=== PATIENT | female | born 1995 | race Two or more races ===

== ENCOUNTER 2018-06-17 05:57 | Inpatient (IN) | payer MEDICAID ==
[2018-06-14 12:33] LABS: Basophils # (auto) 0 uL; Basophils % (auto) 0.3 % (0.0-2.0); Eosinophils # (auto) 0 uL; Eosinophils % (auto) 0.5 % (0.0-7.0); Hematocrit 43.1 % (36.0-46.0); Hemoglobin 14.5 g/dL (12.2-16.2); Lymphocytes # (auto) 2.8 uL; Lymphocytes % (auto) 31.3 % (10.0-50.0); Mean Corpuscular Hemoglobin 28.1 pg (28.0-32.0); Mean Corpuscular Hgb Conc. 33.6 g/dL (32.0-36.0); Mean Corpuscular Volume 83.7 fL (80.0-100.0); Monocytes # (auto) 0.5 uL; Monocytes % (auto) 6.1 % (0.0-12.0); Neutrophils # (auto) 5.6 uL; Neutrophils % (auto) 61.8 % (37.0-80.0); Nucleated Red Blood Cells % 0.1 %; Platelet Count (auto) 345 10^3/uL (140-450); Red Blood Cells 5.15 10^6/uL (4.0-5.20); Red Cell Distribution Width 13.6 % (11.8-14.3)
[2018-06-14 12:35] LABS: Urine Bacteria FEW /hpf (None Seen); Urine Blood Negative /uL (Negative); Urine Mucus FEW (None Seen); Urine Specific Gravity 1.027 (1.001-1.035); Urine WBC 4 /hpf (0 - 5)
[2018-06-14 12:45] LABS: INR 0.93 (0.9-1.15); Partial Thromboplastin Time 29.6 sec (23.78-33.04)
[2018-06-14 13:19] LABS: Calcium 8.7 mg/dL (8.5-10.1); Potassium 3.5 mmol/L (3.5-5.1)
[2018-06-14 13:22] LABS: Albumin 3.7 g/dL (3.4-5.0); BUN/Creatinine Ratio 18.8
[2018-06-14 13:25] LABS: Bilirubin, Total 0.3 mg/dL (0.2-1.0); Total Protein 7.8 g/dL (6.4-8.2)
[~2018-06-17] VITALS: Ht 172.7 cm; Wt 131.0 kg
[~2018-06-17 05:57] MED LIST: ATEN-60 PO; BUPRTAB3 PO; DIPH2.5T73 PO; DIVA500T53 PO; HYDR-531 PO; LAMO200T2 PO; METF-370 PO; MORP30TA PO; ZOLP-158 PO
[2018-06-17] MEDS ORDERED: HYDROmorphone HCL 2 MG/ML VL ONE ×2 (07:09→11:27)
[2018-06-17] MEDS ORDERED: fentaNYL CITRATE 100 MCG/2 ML VL ONE (07:09)
[2018-06-17] MEDS ORDERED: ROCURONIUM 10MG/ML 10ML VIAL IV ONE (07:09)
[2018-06-17] MEDS ORDERED: PROPOFOL 10 MG/ML 20 ML IV ONE (07:09)
[2018-06-17] MEDS ORDERED: SODIUM CHLORIDE LOCK 40 ML ONE (07:09)
[2018-06-17] MEDS ORDERED: KETOROLAC TROMETH 60MG/2ML VIAL IM ONE ×2 (07:09→09:27)
[2018-06-17] MEDS ORDERED: ONDANSETRON HCL 4 MG/2 ML VIAL ONE (07:09)
[2018-06-17] MEDS ORDERED: MIDAZOLAM HCL 1MG/1ML-2 ML VIAL ONE (07:09)
[2018-06-17] MEDS ORDERED: fentaNYL CITRATE 10 ML ONE (07:10)
[2018-06-17] MEDS ORDERED: CLINDAMYCIN 900MG IV 50 ML IV ONE (07:15)
[2018-06-17] MEDS ORDERED: GENTAMICIN SULFATE 80 MG in D5W 5% 100 ML IV ONE (07:15)
[2018-06-17] MEDS ORDERED: ACCU-CHEK COMFORT CURVE STRIP VI ONE (07:45)
[2018-06-17] MEDS ORDERED: MORPHINE SULF INJ 2 MG/ML SYRINGE 1ML IV PRN (07:45)
[2018-06-17] MEDS ORDERED: METOCLOPRAMIDE HCL 5MG/ml INJ 2ml VIAL IV ONE (07:45)
[2018-06-17] MEDS ORDERED: KETOROLAC TROMETH 30 MG/ML 1ML VIAL IV ONE (07:45)
[2018-06-17] MEDS ORDERED: GENTAMICIN SULF 80 MG/2 ML VIAL ONE (08:02)
[2018-06-17] MEDS ORDERED: NEOSTIGMINE 1 MG/ML INJ (10mg/10ML VIAL) ONE (09:27)
[2018-06-17] MEDS ORDERED: GLYCOPYRROLATE 0.2 MG/ML 1ML VIAL ONE (09:27)
[2018-06-17] MEDS: LACTATED RINGER'S 1,000 ML IV SCH ×3 (10:23→23:43)
[2018-06-17] MEDS ORDERED: ACETAMINOPHEN IV 100 ML IV ONE ×2 (10:30→10:38)
[2018-06-17] MEDS ORDERED: HYDROmorphone HCL 2 MG/ML VL IV ONE (11:30)
[2018-06-17] MEDS ORDERED: MEPERIDINE HCL (50 MG/ML) 1 ML VIAL IV ONE (11:50)
[2018-06-17] MEDS ORDERED: MEPERIDINE HCL (50 MG/ML) 1 ML VIAL ONE (11:55)
[2018-06-17 12:53] VITALS: BP 130/82
[2018-06-17 14:00] VITALS: BP 130/82
[2018-06-17] MEDS: MORPHINE SULF INJ 2 MG/ML SYRINGE 1ML IV PRN ×2 (15:31→20:33)
[2018-06-17] MEDS: CLINDAMYCIN 900MG IV 50 ML IV SCH ×2 (15:37→22:29)
[2018-06-17 16:53] VITALS: BP 132/75
[2018-06-17] MEDS: GENTAMICIN SULFATE 80 MG in D5W 5% 100 ML IV SCH (17:35)
[2018-06-17 22:00] VITALS: BP 130/66
[2018-06-18] MEDS: GENTAMICIN SULFATE 80 MG in D5W 5% 100 ML IV SCH ×2 (00:36→09:17)
[2018-06-18] MEDS: MORPHINE SULF INJ 2 MG/ML SYRINGE 1ML IV PRN ×3 (00:36→18:35)
[2018-06-18 05:00] VITALS: BP 139/77
[2018-06-18 05:40] LABS: Basophils # (auto) 0 uL; Basophils % (auto) 0.2 % (0.0-2.0); Eosinophils # (auto) 0 uL; Hematocrit 39.9 % (36.0-46.0); Hemoglobin 13.4 g/dL (12.2-16.2); Lymphocytes # (auto) 2.5 uL; Lymphocytes % (auto) 20.3 % (10.0-50.0); Mean Corpuscular Hemoglobin 28.4 pg (28.0-32.0); Mean Corpuscular Hgb Conc. 33.6 g/dL (32.0-36.0); Mean Corpuscular Volume 84.6 fL (80.0-100.0); Monocytes # (auto) 1.5 uL; Monocytes % (auto) 12.4 % (0.0-12.0); Neutrophils # (auto) 8.2 uL; Neutrophils % (auto) 67.1 % (37.0-80.0); Nucleated Red Blood Cells % 0.1 %; Platelet Count (auto) 335 10^3/uL (140-450); Red Blood Cells 4.71 10^6/uL (4.0-5.20); Red Cell Distribution Width 13.7 % (11.8-14.3); White Blood Cell 12.2 10^3/uL (4.4-10.8)
[2018-06-18 05:56] LABS: Albumin 3.3 g/dL (3.4-5.0); BUN/Creatinine Ratio 9.4; Calcium 8.3 mg/dL (8.5-10.1); Potassium 3.8 mmol/L (3.5-5.1)
[2018-06-18 05:58] LABS: Bilirubin, Total 0.4 mg/dL (0.2-1.0); Total Protein 7.3 g/dL (6.4-8.2)
[2018-06-18] MEDS: CLINDAMYCIN 900MG IV 50 ML IV SCH (06:23)
[2018-06-18] MEDS: LACTATED RINGER'S 1,000 ML IV SCH (06:49)
[2018-06-18 08:00] VITALS: BP 126/73
[2018-06-18] MEDS ORDERED: LACTATED RINGER'S 1,000 ML IV SCH (08:32)
[2018-06-18] MEDS ORDERED: SIMETHICONE 80 MG CHEWABLE TABLET PO PRN (08:45)
[2018-06-18 09:00] VITALS: BP 126/73
[2018-06-18] MEDS: DOCUSATE SOD 100 MG CAP PO SCH ×2 (09:17→22:00)
[2018-06-18] MEDS ORDERED: PATIENTS OWN MEDICATION (Lamotrigine (Lamictal) 1 TAB) PO SCH (10:00)
[2018-06-18] MEDS ORDERED: DIVALPROEX SODIUM 1500 MG PO SCH (10:00)
[2018-06-18] MEDS ORDERED: BUPROPION HCL 300 MG PO SCH (10:00)
[2018-06-18] MEDS ORDERED: lamoTRIgine 100 MG TAB PO SCH ×2 (10:00→12:00)
[2018-06-18] MEDS ORDERED: metFORMIN HYDROCHLORIDE 500 MG TAB PO ONE (11:15)
[2018-06-18 17:00] VITALS: BP 127/69
[2018-06-18] MEDS: metFORMIN HYDROCHLORIDE 500 MG TAB PO SCH (18:30)
[2018-06-18] MEDS: buPROPion HCL 75 MG TAB PO SCH (18:35)
[2018-06-18] MEDS: HYDROcodone-ACET 5/325MG TAB PO PRN (20:00)
[2018-06-18 22:00] VITALS: BP 137/71
[2018-06-18] MEDS: ZOLPIDEM TARTRATE 5 MG TAB PO SCH (23:02)
[2018-06-18] MEDS: lamoTRIgine 100 MG TAB PO SCH (23:03)
[2018-06-19] MEDS: MORPHINE SULF INJ 2 MG/ML SYRINGE 1ML IV PRN ×5 (00:09→19:48)
[2018-06-19 05:00] VITALS: BP 126/61
[2018-06-19] MEDS: metFORMIN HYDROCHLORIDE 500 MG TAB PO SCH ×2 (06:50→18:31)
[2018-06-19] MEDS: buPROPion HCL 75 MG TAB PO SCH ×2 (06:50→18:31)
[2018-06-19 07:40] VITALS: BP 132/69
[2018-06-19] MEDS ORDERED: DIPHENOXYLATE W/ATROPINE 2.5 MG TAB PO PRN (07:45)
[2018-06-19] MEDS: HYDROcodone-ACET 5/325MG TAB PO PRN (08:15)
[2018-06-19 09:00] VITALS: BP 132/69
[2018-06-19] MEDS: DOCUSATE SOD 100 MG CAP PO SCH ×2 (09:31→22:34)
[2018-06-19] MEDS: HYDROcodone-ACET 7.5/325MG TAB PO PRN ×3 (12:33→22:35)
[2018-06-19 12:44] VITALS: BP 123/69
[2018-06-19 17:00] VITALS: BP 115/74
[2018-06-19 18:00] LABS: Basophils # (auto) 0.1 uL; Basophils % (auto) 0.6 % (0.0-2.0); Eosinophils # (auto) 0.1 uL; Eosinophils % (auto) 0.6 % (0.0-7.0); Hematocrit 41.4 % (36.0-46.0); Hemoglobin 13.9 g/dL (12.2-16.2); Lymphocytes # (auto) 4.4 uL; Lymphocytes % (auto) 34.8 % (10.0-50.0); Mean Corpuscular Hemoglobin 28.4 pg (28.0-32.0); Mean Corpuscular Hgb Conc. 33.5 g/dL (32.0-36.0); Mean Corpuscular Volume 84.6 fL (80.0-100.0); Monocytes # (auto) 1.1 uL; Monocytes % (auto) 8.9 % (0.0-12.0); Neutrophils % (auto) 55.1 % (37.0-80.0); Nucleated Red Blood Cells % 0.1 %; Platelet Count (auto) 345 10^3/uL (140-450); Red Blood Cells 4.89 10^6/uL (4.0-5.20); Red Cell Distribution Width 13.8 % (11.8-14.3); White Blood Cell 12.6 10^3/uL (4.4-10.8)
[2018-06-19 18:21] LABS: Albumin 3.4 g/dL (3.4-5.0); BUN/Creatinine Ratio 14.1; Bilirubin, Total 0.3 mg/dL (0.2-1.0); Calcium 8.7 mg/dL (8.5-10.1); Potassium 3.5 mmol/L (3.5-5.1); Total Protein 7.7 g/dL (6.4-8.2)
[2018-06-19] MEDS ORDERED: ENOXAPARIN SOD 150 MG/1 ML SYRINGE SC ONE (18:45)
[2018-06-19] MEDS ORDERED: IOHEXOL 350 MG/ML 100ML IJ ONE (19:42)
[2018-06-19 22:00] VITALS: BP 133/76
[2018-06-19] MEDS: lamoTRIgine 100 MG TAB PO SCH (22:34)
[2018-06-19] MEDS: ZOLPIDEM TARTRATE 5 MG TAB PO SCH (22:34)
[2018-06-20] VITALS (7 sets, daily range): BP systolic 115–133; BP diastolic 73–80
[2018-06-20] MEDS: MORPHINE SULF INJ 2 MG/ML SYRINGE 1ML IV PRN ×3 (01:35→17:33)
[2018-06-20] MEDS: diphenhdrAMINE HCL 25 MG CAP PO PRN ×2 (02:28→22:41)
[2018-06-20 06:37] LABS: Basophils # (auto) 0.1 uL; Basophils % (auto) 0.6 % (0.0-2.0); Eosinophils # (auto) 0.1 uL; Eosinophils % (auto) 0.7 % (0.0-7.0); Hematocrit 38.2 % (36.0-46.0); Hemoglobin 12.9 g/dL (12.2-16.2); Lymphocytes % (auto) 36.8 % (10.0-50.0); Mean Corpuscular Hemoglobin 28.7 pg (28.0-32.0); Mean Corpuscular Hgb Conc. 33.8 g/dL (32.0-36.0); Mean Corpuscular Volume 84.8 fL (80.0-100.0); Monocytes # (auto) 0.8 uL; Monocytes % (auto) 7.8 % (0.0-12.0); Neutrophils # (auto) 5.9 uL; Neutrophils % (auto) 54.1 % (37.0-80.0); Platelet Count (auto) 304 10^3/uL (140-450); Red Blood Cells 4.51 10^6/uL (4.0-5.20); Red Cell Distribution Width 13.9 % (11.8-14.3); White Blood Cell 10.8 10^3/uL (4.4-10.8)
[2018-06-20] MEDS: metFORMIN HYDROCHLORIDE 500 MG TAB PO SCH ×2 (06:51→17:33)
[2018-06-20] MEDS: buPROPion HCL 75 MG TAB PO SCH ×2 (06:51→17:33)
[2018-06-20 06:57] LABS: Albumin 3.1 g/dL (3.4-5.0); BUN/Creatinine Ratio 20.7; Bilirubin, Total 0.3 mg/dL (0.2-1.0); Calcium 8.4 mg/dL (8.5-10.1); Potassium 3.2 mmol/L (3.5-5.1)
[2018-06-20] MEDS ORDERED: POTASSIUM CHL 20 Meq TABLET PO ONE (08:30)
[2018-06-20] MEDS: LEVOFLOXACIN 500MG 100 ML IV SCH (09:30)
[2018-06-20] MEDS: DOCUSATE SOD 100 MG CAP PO SCH ×2 (10:00→21:44)
[2018-06-20] MEDS: HYDROcodone-ACET 7.5/325MG TAB PO PRN ×2 (12:48→20:27)
[2018-06-20] MEDS: ZOLPIDEM TARTRATE 5 MG TAB PO SCH (21:44)
[2018-06-20] MEDS: lamoTRIgine 100 MG TAB PO SCH (21:44)
[2018-06-21] MEDS: MORPHINE SULF INJ 2 MG/ML SYRINGE 1ML IV PRN (00:21)
[2018-06-21 05:00] VITALS: BP 119/66
[2018-06-21] MEDS: buPROPion HCL 75 MG TAB PO SCH (06:59)
[2018-06-21] MEDS: metFORMIN HYDROCHLORIDE 500 MG TAB PO SCH (06:59)
[2018-06-21 07:09] LABS: BUN/Creatinine Ratio 23.1; Calcium 7.9 mg/dL (8.5-10.1); Potassium 3.4 mmol/L (3.5-5.1)
[2018-06-21 08:00] VITALS: BP 119/68
[2018-06-21 09:00] VITALS: BP 119/68
[2018-06-21] MEDS: HYDROcodone-ACET 7.5/325MG TAB PO PRN (09:29)
[2018-06-21] MEDS: DOCUSATE SOD 100 MG CAP PO SCH (09:56)
[2018-06-21] MEDS: LEVOFLOXACIN 500MG 100 ML IV SCH (09:59)
[2018-06-21 11:17] VITALS: BP 119/68
[2018-06-21 13:00] VITALS: BP 127/71
== END 2018-06-21 14:00 | disposition home or self-care (01) | DRG 513 ==
LOC: SUR 05:57 → WEST WING 05:58
PROVIDERS: ADMIT Specialist; ATTEND Specialist
PROC: 0UT90ZZ Resection of Uterus, Open Approach (ICD-10-PCS; principal; 2018-06-17 07:55)
DX: N80.1 Endometriosis of ovary (principal); Z68.41 Body mass index [BMI] 40.0-44.9, adult; I10 Essential (primary) hypertension; E66.01 Morbid (severe) obesity due to excess calories; F31.9 Bipolar disorder, unspecified; E87.6 Hypokalemia; G89.4 Chronic pain syndrome; Z82.49 Family history of ischemic heart disease and other diseases of the circulatory system; Z83.3 Family history of diabetes mellitus; Z88.2 Allergy status to sulfonamides; Z88.8 Allergy status to other drugs, medicaments and biological substances
CPT/HCPCS: 36415; 71046; 71275; 73020; 74018; 80048; 80053; 81001; 82962; 84702; 85025; 85379; 85610; 85730; 86850; 86900; 86901; 93970; A6257; J0131; J1885; J1956; J2250; J2405; J2704; J3490; J7060

== ENCOUNTER 2020-03-27 14:12 | Emergency (ER) | payer MEDICAID ==
[~2020-03-27] VITALS: Ht 172.7 cm; Wt 104.3 kg
[2020-03-27 14:20] VITALS: BP 112/64
[2020-03-27 15:25] LABS: Basophils # (auto) 0 10 ^3/uL (0-0.2); Basophils % (auto) 0.5 % (0.0-2.0); Eosinophils # (auto) 0.1 10 ^3/uL (0-0.8); Eosinophils % (auto) 1.6 % (0.0-7.0); Hematocrit 39.7 % (36.0-46.0); Hemoglobin 13.1 g/dL (12.2-16.2); Lymphocytes # (auto) 3.3 10 ^3/uL (0.4-5.4); Lymphocytes % (auto) 36.6 % (10.0-50.0); Mean Corpuscular Hemoglobin 28.4 pg (28.0-32.0); Mean Corpuscular Volume 86.2 fL (80.0-100.0); Monocytes # (auto) 0.6 10 ^3/uL (0-1.3); Monocytes % (auto) 6.9 % (0.0-12.0); Neutrophils # (auto) 4.9 10 ^3/uL (1.6-8.6); Neutrophils % (auto) 54.4 % (37.0-80.0); Nucleated Red Blood Cells % 0.2 %; Platelet Count (auto) 339 10^3/uL (140-450); Red Blood Cells 4.61 10^6/uL (4.0-5.20); Red Cell Distribution Width 13.6 % (11.8-14.3)
[2020-03-27 15:30] LABS: Urine Bacteria FEW /hpf (None Seen); Urine Blood Negative /uL (Negative); Urine Mucus FEW (None Seen); Urine Specific Gravity 1.025 (1.001-1.035); Urine WBC 1 /hpf (0 - 5)
[2020-03-27 15:43] LABS: BUN/Creatinine Ratio 28.8; Calcium 8.5 mg/dL (8.5-10.1); Potassium 3.8 mmol/L (3.5-5.1)
== END 2020-03-27 15:51 | disposition home or self-care (01) ==
LOC: ER 14:12
DX: R60.9 Edema, unspecified (principal); E11.9 Type 2 diabetes mellitus without complications; I10 Essential (primary) hypertension; Z88.1 Allergy status to other antibiotic agents; Z88.2 Allergy status to sulfonamides; Z88.8 Allergy status to other drugs, medicaments and biological substances; Z79.899 Other long term (current) drug therapy
CPT/HCPCS: 36415; 80048; 81001; 85025